=== PATIENT | female | born 1995 | race Caucasian/White ===

== ENCOUNTER → 2018-04-09 14:50 | Outpatient (CLI) | payer SELFPAY ==
[2018-04-09 15:55] LABS: Follicle Stimulating Hormone 3.2 mIU/mL; Luteinizing Hormone 10.7 mIU/mL
== END ==
PROVIDERS: Visit Provider Obstetrics & Gynecology
DX: N92.1 Excessive and frequent menstruation with irregular cycle (principal)
CPT/HCPCS: 36415; 83001; 83002

== ENCOUNTER → 2018-11-13 11:45 | Outpatient (CLI) | payer OTHER, SELFPAY ==
[2018-11-13 15:57] LABS: Progesterone Level 5.25 ng/mL (See Comment)
== END ==
PROVIDERS: Visit Provider Obstetrics & Gynecology
DX: N92.1 Excessive and frequent menstruation with irregular cycle (principal)
CPT/HCPCS: 36415; 84144

== ENCOUNTER → 2019-01-14 | Outpatient (CLI) | payer OTHER, SELFPAY ==
[2019-01-14 16:14] LABS: Progesterone Level 24.14 ng/mL (See Comment)
== END | disposition home or self-care (01) ==
LOC: WOBLAB 13:40
PROVIDERS: Visit Provider Obstetrics & Gynecology
DX: N92.1 Excessive and frequent menstruation with irregular cycle (principal)
CPT/HCPCS: 36415; 84144

== ENCOUNTER → 2020-01-10 | Outpatient (CLI) | payer OTHER, SELFPAY ==
[2020-01-10 18:08] LABS: Progesterone Level 0.25 ng/mL (See Comment)
[2020-01-10 18:13] LABS: hCG Titer Quant., Serum < 1 mIU/mL (1-3)
== END | disposition home or self-care (01) ==
LOC: WOBLAB 16:54
PROVIDERS: Visit Provider Obstetrics & Gynecology
DX: Z30.430 Encounter for insertion of intrauterine contraceptive device (principal)
CPT/HCPCS: 36415; 84144; 84702

== ENCOUNTER → 2020-01-12 16:30 | Outpatient (CLI) | payer OTHER, SELFPAY ==
[2020-01-12 21:27] LABS: Chlamydia Trachomatis by PCR Negative (Negative); Neisserai gonorrhoeae by PCR Negative (Negative); Probe Check PASS; Sample Adequacy Control PASS; Specimen Processing Control PASS
== END ==
PROVIDERS: Visit Provider Obstetrics & Gynecology
DX: Z30.430 Encounter for insertion of intrauterine contraceptive device (principal); Z11.3 Encounter for screening for infections with a predominantly sexual mode of transmission
CPT/HCPCS: 87491; 87591

== ENCOUNTER → 2020-04-03 10:20 | Outpatient (CLI) | payer OTHER, SELFPAY ==
--- NOTE | 2020-04-03 10:25 | STE_ITS ---
Reason For Study: PALPITATIONS Stress Results Protocol: Mohan Protocol Maximum Predicted HR: 198 bpm Target HR: 168 bpm % Maximum Predicted HR: 85 % DurationHeart Rate Stage (mm:ss) (bpm) BP Comment BASELINE 79 120/70 STAGE 1 3:00 126 132/62 STAGE 2 3:00 131 142/62 STAGE 3 3:00 157 140/70 STAGE 4 0:33 169 / INCREASED SOB RECOVERY 105 132/82 Stress Duration: 9:33 mm:ss Maximum Stress HR: 169 bpm Baseline Echocardiogram Findings Stress Echo Wall motion Data Resting WM Intermediate WM Stress WM Interpretation Summary Exercise stress echocardiogram. 24-year-old lady with a history of palpitations. Stress protocol: Resting EKG demonstrates normal sinus rhythm with a rate of 81 bpm normal intervals are noted resting blood pressure is 120/70 mmHg. The patient exercised according to regular Mohan protocol for a total duration of 9 minutes and 33 seconds. The maximum heart rate attained 169 bpm which was 85% of maximum predicted heart rate the maximum workload was 11.9 metabolic equivalents. At rest there were no ST or T wave changes noted to suggest ischemia at peak exercise upsloping ST changes only were noted with no meet the criteria for ischemia. No clinical angina was noted the test was terminated due to target heart rate being achieved. The peak blood pressure was 152/76 with a normal blood pressure response to exercise noted. Stress echocardiogram. Resting echocardiogram demonstrated an ejection fraction of approximately 60%. At peak exercise there was thickening of all leo and reduction in low ventricular cavity size peaking with an ejection fraction of approximately 70%. No wall motion abnormalities were noted. No ischemia was present. Conclusion: Normal exercise stress echo with no arrhythmias noted. Excellent functional aerobic capacity. Preserved ejection fraction. Ordering Physician: Ezequiel Leal Referring Physician: Ezequiel Leal Performed By: Ervin Marroquin RCS
== END ==
PROVIDERS: PCP Internal Medicine; Referring Provider Nurse Practitioner Primary Care; Visit Provider Nurse Practitioner Primary Care
DX: R00.2 Palpitations (principal); R94.31 Abnormal electrocardiogram [ECG] [EKG]
CPT/HCPCS: 93017; 93225; 93226; 93350

== ENCOUNTER 2020-11-26 10:34 | Emergency (ER) | payer OTHER, SELFPAY ==
[2020-11-26 10:34] VITALS: BP 129/89; PULSE 15; RESP 120; TEMP 37.5; O2SAT 100; BMI 29.5
[2020-11-26 10:42] VITALS: O2SAT 98
--- NOTE | 2020-11-26 10:46 | CT_ITS ---
STUDY: CT BRAIN WITHOUT CONTRAST REASON FOR EXAM: Female, 25 years old. headache RADIATION DOSAGE (If Supplied By Facility): CTDIvol = ( ) mGy, DLP = ( ) mGycm TECHNIQUE: Transaxial CT imaging of the brain was performed without administration of intravenous contrast material. Individualized dose optimization techniques were used for this CT. COMPARISON: None. FINDINGS: Normal size ventricles and extra-axial spaces for the patient''s age. Normal white matter tracts of the cerebral hemispheres. There is no intracranial hemorrhage. There are no findings of an acute ischemic infarction. Normal soft tissue structures. Normal visualized paranasal sinuses. CT/Brain/Head without Contrast IMPRESSION: Unremarkable unenhanced CT scan of the brain. Electronically Signed: Sven Vazquez MD at 12:38 EDT Tel , Service support ,
--- NOTE | 2020-11-26 10:59 | ED.DCSUM_ITS ---
- ER Visit Summary Date of Service: 11/26/20 Chief Complaint: Fever History of Present Illness: The patient is a 25 F presenting with fever and chills. Patient states this started yesterday. She states she has been taking Tylenol at home with the last dose 4 hours prior to arrival. She complains of fever and chills. She complains of myalgias and headache. She denies chest pain or shortness of breath. Denies cough. Denies abdominal pain, nausea, vomiting, diarrhea. No recent exposure to Covid. Denies other complaints. Physical Examination: Vitals are stable. Temperature 99.5. Alert no acute distress. HEENT exam is unremarkable. Neck is supple. No meningismus Lungs are clear and equal bilaterally. Heart is regular tachycardic Abdomen is soft nontender nondistended. Extremities are unremarkable. Skin is warm and dry. No focal neurologic deficit. Normal strength Remainder of exam is unremarkable. Emergency Department Course and Treatment: Patient is given IV fluids, Reglan, Benadryl. CBC unremarkable other than platelet 112. Chemistries unremarkable other than potassium 3.0. She was given KCl po. Repeat temperature 101.1, she was given Tylenol. hCG negative. Flu and Covid are negative. Chest xray read by myself and radiology shows no definite acute or significant abnormality seen. CT head shows unremarkable unenhanced CT scan of the brain. On reevaluation, patient is feeling improved. She is comfortable with discharge home. She will follow-up with her primary care physician. Advised return to ED for worsening complaints. Disposition: Discharge home Impression: Febrile illness This note was generated with [employer] mobile dictation software. It may contain incorrect words, spelling, and punctuation that were not noted in review of the chart prior to signing ED Disposition - Plan for ED Patient: Instructions: ED Viral Syndrome (Adult) Referrals: Henrietta Jarrett MD [Primary Care Provider] -
[2020-11-26 11:03] LABS: Absolute Neutrophil Count 5.8 X10^3/uL (2.0-7.7); Basophil# 0.02 X10^3/uL; Basophil% 0.3 % (0-1); Hematocrit 44.4 % (37-47); Hemoglobin 14.9 g/dL (12.0-15.0); Lymphocyte % 10.2 % (19-41); Mean Corp Hgb Conc 33.6 g/dL (32-36); Mean Corpuscular Volume 89.5 fL (81-99); Mean Platelet Vol. 11.2 fl (6.2-12.0); Monocyte# 0.37 X10^3/uL; Monocyte% 5.4 % (0-10); NRBC Flagged by Analyzer 0 % (0-5); Neutrophil # 5.76 X10^3/uL (2.7-7.7); Neutrophil % 83.8 % (47-70); Platelet Count 112 K/mm3 (150-450); RBC Distribution Width CV 13.2 % (11.6-14.6); RBC Distribution Width SD 43.1 fl (35.1-43.9); Red Blood Count 4.96 M/mm3 (4.2-5.4); White Blood Count 6.9 K/mm3 (4.4-11.0)
[2020-11-26] MEDS: Metoclopramide 10 MG/2 ML Vial IV (11:04)
[2020-11-26] MEDS: 0.9% Normal Saline 1,000 ML 1000 ML IV (11:04)
[2020-11-26] MEDS: DiphenhydrAMINE 50 MG/ML Syringe 25 MG IV (11:04)
[2020-11-26 11:15] VITALS: BP 121/75; PULSE 109; RESP 23; TEMP 38.4; O2SAT 100
[2020-11-26 11:19] LABS: Anion Gap 9 (5-15); BUN 9 mg/dL (7-18); BUN/Creat Ratio 10.1 RATIO (10-20); Calcium,Total 8.5 mg/dL (8.5-10.1); Chloride 98 mmol/L (98-107); Creatinine, Serum 0.89 mg/dL (0.55-1.02); EST Glomerular Filtration Rate 83 mL/min (>60); Est Glom Filt Rate - Afr Amer 100 mL/min (>60); Estimated Creatinine Clearance 102.74 ml/min; Glucose 106 mg/dL (74-106); Sodium Level 133 mmol/L (136-145)
[2020-11-26] MEDS: Acetaminophen 500 MG Tablet 1000 MG PO (11:20)
[2020-11-26 11:25] LABS: Internal QC Validated? YES +Cl - CLEAR BKGD; Pregnancy, Serum, hCG Quali. NEGATIVE Negative
--- NOTE | 2020-11-26 11:34 | RAD_ITS ---
STUDY: X-RAY CHEST REASON FOR EXAM: Female, 25 years old. fever, chills, body aches, headache TECHNIQUE: Single AP portable view of the chest. COMPARISON: None. FINDINGS: A right Mediport catheter is seen terminating in the upper right atrium. The lungs are clear and expanded. There is no demonstrated pleural abnormality. Normal size heart. Normal mediastinum and julia. Normal visualized pulmonary arteries. Normal visualized aortic arch and descending thoracic aorta. Normal visualized thoracic spine. Normal visualized ribs, clavicles, and shoulders. There is no demonstrated abnormality of the visualized soft tissue structures of the upper abdomen. RAD/Chest 1 View (Portable) IMPRESSION: No definite acute or significant abnormality seen. Electronically Signed: Jules Monteiro MD at 12:06 EDT , Service support ,
[2020-11-26 11:41] LABS: Color, Urine Yellow (Yellow); Glucose, Dipstick Normal (Normal); Ketone-Dipstick 15 mg/dl (Negative); Leukocyte Esterase-Dipstick 25 /ul (Negative); Nitrite-Dipstick Negative (Negative); Occult Blood-Urine 10 /ul (Negative); Protein-Dipstick 30 mg/dl (Negative); Urine Clarity Sl. Cloudy (Clear); Urine Urobilinogen 4 mg/dl (Normal)
[2020-11-26 11:43] LABS: Urine Bilirubin Dipstick 1 mg/dL (Negative)
[2020-11-26 11:49] LABS: Bacteria 1+ /hpf (None Seen); Mucous, Urine 2+ /hpf (<or=2+); Red Blood Cells-Urine 0-5 SEEN /hpf (0-5); Squamous Epithelial Cells - UA 0-5 SEEN /hpf (5-10); White Blood Cells 0-5 SEEN /hpf (0-5)
[2020-11-26 11:54] VITALS: BP 108/69; PULSE 98; RESP 22; O2SAT 96
[2020-11-26] MEDS: Potassium Chloride Oral Tablet 20 MEQ PO (12:25)
[2020-11-26] MEDS: 0.9% Normal Saline 1,000 ML 999 ML IV (12:25)
[2020-11-26 12:28] VITALS: BP 116/72; PULSE 103; RESP 21; TEMP 37.1; O2SAT 97
--- NOTE | 2020-11-26 12:50 | ED.DEP ---
ED Disposition - Plan for ED Patient: Instructions: ED Viral Syndrome (Adult) Referrals: Henrietta Jarrett MD [Primary Care Provider] -
[2020-11-26 13:01] VITALS: BP 109/95; PULSE 95; RESP 16; O2SAT 98
== END 2020-11-26 13:06 | disposition home or self-care (01) ==
LOC: ED 11:24
PROVIDERS: Emergency Provider Emergency Medicine; PCP Internal Medicine
DX: R50.9 Fever, unspecified (principal); K21.9 Gastro-esophageal reflux disease without esophagitis
CPT/HCPCS: 70450; 71045; 80048; 81001; 84703; 85025; 87426; 87804; 96361; 96374; 96375; 99283; J7030; A4216

== ENCOUNTER → 2021-04-16 | Outpatient (CLI) | payer OTHER, SELFPAY ==
[2021-04-18 18:24] LABS: HPV Reflexed? NOT INDICATED
== END | disposition home or self-care (01) ==
LOC: LABSPEC 12:29
PROVIDERS: PCP Internal Medicine; Referring Provider Nurse Practitioner Women's Health; Visit Provider Nurse Practitioner Women's Health
DX: Z12.4 Encounter for screening for malignant neoplasm of cervix (principal)
CPT/HCPCS: 88175; G0145

== ENCOUNTER → 2021-06-19 12:55 | Outpatient (CLI) | payer OTHER, SELFPAY ==
--- NOTE | 2021-06-19 13:00 | MRI_ITS ---
STUDY: MRI LOWER EXTREMITY RIGHT THIGH REASON FOR EXAM: Right leg weakness, autoimmune necrotizing myopathy. TECHNIQUE: Standardized fat and water weighted pulse sequences were obtained in all 3 orthogonal planes. COMPARISON: None. FINDINGS: Normal subcutis adipose space. Normal visualized quadriceps, adductor and hamstring muscles without intramuscular edema or muscle atrophy. Normal quadriceps extensor mechanism with a normal rectus femoris, vastus medialis, intermedius and lateralis muscles. Normal visualized femur. MRI/Lower Ext/No Jt/w/o IMPRESSION: Unremarkable MRI of the right thigh without demonstrated muscle edema or atrophy. Electronically Signed: Darryn Christianson MD at 9:46 EDT Tel , Service support ,
== END ==
PROVIDERS: PCP Internal Medicine
DX: G72.49 Other inflammatory and immune myopathies, not elsewhere classified (principal); D84.9 Immunodeficiency, unspecified; R53.1 Weakness
CPT/HCPCS: 73718

== ENCOUNTER → 2021-07-02 14:44 | Outpatient (CLI) | payer OTHER, SELFPAY ==
[2021-07-02 16:20] LABS: hCG Titer Quant., Serum 3741 mIU/mL (1-3)
== END ==
PROVIDERS: PCP Internal Medicine; Referring Provider Obstetrics & Gynecology; Visit Provider Obstetrics & Gynecology
DX: O20.0 Threatened abortion (principal)
CPT/HCPCS: 36415; 84702

== ENCOUNTER → 2021-07-05 10:06 | Outpatient (CLI) | payer OTHER, SELFPAY ==
[2021-07-05 12:32] LABS: hCG Titer Quant., Serum 8330 mIU/mL (1-3)
== END ==
PROVIDERS: PCP Internal Medicine; Visit Provider Obstetrics & Gynecology
DX: O20.0 Threatened abortion (principal)
CPT/HCPCS: 36415; 84702

== ENCOUNTER → 2021-07-09 08:27 | Outpatient (CLI) | payer OTHER, SELFPAY ==
--- NOTE | 2021-07-09 09:34 | NEURO ---
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 Evaluate for recurrence of disease. Findings: Nerve conduction studies were performed in the right upper and lower extremities. The right median motor study recording the abductor pollicis brevis showed a normal amplitude, normal distal latency and normal conduction velocity. The right radial sensory response recording over the extensor snuff box showed a normal amplitude, latency and conduction velocity. The right tibial motor study recording the abductor hallucis brevis showed a normal amplitude, normal distal latency and normal conduction velocity. Right sural sensory response showed a normal amplitude and conduction velocity. Needle EMG of the right extremities and paraspinal muscles was performed. Insertional activity was slightly increased in the lumbar paraspinal muscles, but no overt active denervation was present in any of the sampled muscle. No myotonic discharges were present. Motor units in the biceps were borderline small amplitude and short duration. The other muscles demonstrated normal motor unit morphology, activation, and recruitment patterns. Impression: This is an essentially normal study. There is no definitive electrophysiologic evidence of an irritative myopathy. The borderline motor unit changes in the biceps are of unclear significance, but may be the chronic sequelae of her prior muscle disease. Tlaat Blas D.O. Multi Select Codes Neurology Neurology Interp Codes: 92703-25 Musc tst done w/nerv tst bro (interp) (Qty:2) and 55950-50 [facility]
== END ==
PROVIDERS: PCP Internal Medicine
DX: G72.49 Other inflammatory and immune myopathies, not elsewhere classified (principal); D84.9 Immunodeficiency, unspecified; R53.1 Weakness
CPT/HCPCS: 95885; 95908

== ENCOUNTER → 2021-07-26 | Outpatient (CLI) | payer OTHER, SELFPAY ==
[2021-07-26 13:33] LABS: Amphetamine Urine VISTA NEGATIVE (<1000 ng/mL); Barbiturate Urine VISTA NEGATIVE (< 200 ng/mL); Benzodiazepine Urine VISTA NEGATIVE (< 200 ng/mL); Cocaine Urine VISTA NEGATIVE (< 300 ng/mL); Ecstacy Urine VISTA NEGATIVE (< 500 ng/mL); Methadone Urine VISTA NEGATIVE (< 300 ng/mL); PCP Urine VISTA NEGATIVE (< 25 ng/mL); THC Urine VISTA NEGATIVE (< 50 ng/mL); Vista UDS pH Range 6
[2021-07-27 21:07] LABS: Chlamydia By Nucleic Acid AMP Negative (Negative)
[2021-07-27 21:47] LABS: Gonococcus By Nucleic Acid AMP Negative (Negative)
== END | disposition home or self-care (01) ==
LOC: LABSPEC 12:32
PROVIDERS: PCP Internal Medicine; Visit Provider Obstetrics & Gynecology
DX: O09.90 Supervision of high risk pregnancy, unspecified, unspecified trimester (principal); Z3A.00 Weeks of gestation of pregnancy not specified
CPT/HCPCS: 80307; 87086; 87088; 87491; 87591

== ENCOUNTER → 2021-08-23 12:49 | Outpatient (CLI) | payer OTHER, SELFPAY ==
[2021-08-23 13:43] LABS: Absolute Lymphocyte Count 1.96 X10^3/uL (0.83-4.51); Absolute Neutrophil Count 3.6 X10^3/uL (2.0-7.7); Basophil# 0.02 X10^3/uL; Basophil% 0.3 % (0-1); Eosinophil# 0.04 X10^3/uL; Eosinophils% 0.7 % (0-5); Hematocrit 34.6 % (37-47); Hemoglobin 12.2 g/dL (12.0-15.0); Lymphocyte # 1.96 X10^3/ul (0.83-4.51); Mean Corp Hgb Conc 35.3 g/dL (32-36); Mean Corpuscular Hgb 31.3 pg (27.0-32.0); Mean Corpuscular Volume 88.7 fL (81-99); Mean Platelet Vol. 10.8 fl (6.2-12.0); Monocyte# 0.53 X10^3/uL; Monocyte% 8.6 % (0-10); NRBC Flagged by Analyzer 0 % (0-5); Neutrophil # 3.56 X10^3/uL (2.7-7.7); Neutrophil % 58.1 % (47-70); Platelet Count 191 K/mm3 (150-450); RBC Distribution Width CV 12.6 % (11.6-14.6); RBC Distribution Width SD 40.6 fl (35.1-43.9); White Blood Count 6.1 K/mm3 (4.4-11.0)
[2021-08-23 14:37] LABS: NATERA MAILED SPECIMEN
[2021-08-23 15:07] LABS: HIV - WCH Non-Reactive (Nonreactive); Hepatitis B Surface Antigen Non-Reactive (Nonreactive); Hepatitis C Antibody Non-Reactive (Nonreactive); Rubella IgG Reactive (Nonreactive); Syphilis Antibodies Reactive
== END ==
PROVIDERS: PCP Internal Medicine; Referring Provider Obstetrics & Gynecology; Visit Provider Obstetrics & Gynecology
DX: O09.91 Supervision of high risk pregnancy, unspecified, first trimester (principal); Z3A.00 Weeks of gestation of pregnancy not specified
CPT/HCPCS: 36415; 85025; 86703; 86762; 86780; 86803; 86850; 86900; 86901; 87340

== ENCOUNTER 2021-10-16 10:03 | Outpatient (CLI) | payer OTHER, SELFPAY ==
[2021-10-18 16:09] LABS: Dilute Prothrombin Time (dPT) 32.1 sec (0.0-47.6); Dilute Russell Viper Venom 31.4 sec (0.0-47.0); PTT-LA 33.3 sec (0.0-51.9); Thrombin Time 19.2 sec (0.0-23.0)
[2021-10-19 12:41] LABS: Anti-Cardiolipin Ab, IgA, Qn < 9 APL U/mL (0-11); Anti-Cardiolipin Ab, IgG, Qn < 9 GPL U/mL (0-14); Anti-Cardiolipin Ab, IgM, Qn < 9 MPL U/mL (0-12); Beta-2-Glycoprotein I IgA <9 (0-25); Beta-2-Glycoprotein I IgG <9 (0-20); Beta-2-Glycoprotein I IgM <9 (0-32); Interpretation Comment: (.)
== END 2021-10-16 23:59 | disposition home or self-care (01) ==
PROVIDERS: PCP Internal Medicine; Referring Provider Obstetrics & Gynecology; Visit Provider Obstetrics & Gynecology
DX: N96 Recurrent pregnancy loss (principal)
CPT/HCPCS: 36415; 86146; 86147

== ENCOUNTER 2021-11-10 20:41 | Emergency (ER) | payer OTHER, SELFPAY ==
[2021-11-10 20:43] VITALS: BP 126/79; PULSE 124; RESP 15; TEMP 36.3; O2SAT 100; BMI 30.8
--- NOTE | 2021-11-10 21:08 | ED.RN ---
PT. 24 WEEKS GESTATION. DUE IN FEBRUARY.
--- NOTE | 2021-11-10 21:44 | EKG12_ITS ---
Test Reason : FEVER Blood Pressure : / mmHG Vent. Rate : 118 BPM Atrial Rate : 118 BPM P-R Int : 194 ms QRS Dur : 094 ms QT Int : 282 ms P-R-T Axes : 077 032 019 degrees QTc Int : 395 ms Sinus tachycardia Nonspecific ST and T wave abnormality Abnormal ECG Confirmed by PIPER RETANA, KRISHNA ([id number]), senior editor FOREST CHAUDHRY ([id number]) on 11/12/2021 11:40:16 A M Referred By: CY Confirmed By:YUDI SALDAÑA MD
--- NOTE | 2021-11-10 21:46 | EX.ED.DYSGE1 ---
HPI History of Present Illness Chief Complaint: Fever Informant: patient and parent Narrative Narrative: 24 weeks 2-day gestation presents here with parents sudden onset fevers chills myalgias today. No cough. No vomiting or diarrhea. No urinary symptoms. Nonvaccinated for Covid, no flu vaccination this year. States she is high risk due to autoimmune necrotizing myopathy she gets treatment with IVIG every 4 weeks. Also daily steroids. States she is concerned due to having a port infection prior to her . She is at [facility] for 6 days. She states there is 3 bacteria infections in her blood. The port was exchanged at that time. Secondary to this she is here for evaluation. Later evaluation of records through [facility],, patient was at [facility] in November 2020, noted similar presentation of symptoms had a fever of 104 at that time. During work-up she had bacteremia of polymicrobial, positive for actinobacter Junii, Pseudomonas Putida, stenotrophomonas maltophilia, Enterobacter cloacae, suspected CLABSI. At that time concern port was the source was removed December 02, later per patient 1 was placed back in. Same time she had headache suspected idiopathic intracranial hypertension. Eventual confirm diagnosis due to her her acetazolamide was stopped and in June noted a note from neurosurgery that she is admitted for shunt placement. She reports no headaches since then. Prior similar symptoms: Yes PFSH PFSH Medical History Abnormal laboratory test Autoimmune necrotizing myopathy History of infertility, female Home Medications ivig infusions IV .Q 4 WEEKS 04/16/21 [History Last Taken Unknown] multivitamin no.47-iron fum 27 mg-folate no.1 1 mg-dha 300 mg capsule cap PO 07/10/21 [History Last Taken Unknown] prednisone 10 mg tablet 15 mg PO DAILY 08/23/21 [History Last Taken Unknown] methylprednisolone sodium succ [Solu-Medrol] 125 mg IV QMONTH 11/10/21 [History Last Taken Unknown] Allergy/AdvReac Type Severity Reaction Status Date / Time No Known Allergies Allergy Verified 11/10/21 20:43 Family History Other Alcoholism Colon cancer Surgical History History of appendectomy History of biopsy History of breast augmentation Social History household members: spouse, family and children number of children: 1 current occupational status: employed 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 history of recent travel: Yes sexually active: Yes Smoking Status: Former smoker alcohol intake: current alcohol intake frequency: holidays/special occasions only substance use type: does not use what type of physical activity do you participate in: none seatbelt use: always do you feel safe at home: Yes additional social history: - [employer] [facility] ED Constitutional Constitutional ED: Reports chills and fever(s); Denies sweats Eyes Eyes: Denies change in vision ENT ENT ED: Denies dysphagia or sore throat Cardiovascular Cardiovascular: Denies chest pain, leg edema, palpitations or racing heartbeat Respiratory/Chest Respiratory/Chest: Denies cough, dyspnea or dyspnea on exertion Gastrointestinal Gastrointestinal: Denies abdominal pain, diarrhea, nausea or vomiting Genitourinary Genitourinary ED: Denies dysuria, hematuria or urinary frequency Musculoskeletal Musculoskeletal: Reports myalgias; Denies back pain, extremity pain or neck pain Integumentary Denies rash or wounds Neurologic Neurologic: Denies headache(s), paresthesias or weakness EXAM Physical Exam Const Vital Signs: 11/10/21 20:43 11/10/21 21:04 11/10/21 21:52 Temperature 97.4 F L 100.3 F H Temperature Source Temporal Oral Pulse Rate 124 H Respiratory Rate 15 Respiratory Effort Normal Non-Labored Respiratory Pattern Normal Blood Pressure 126/79 H Blood Pressure Mean 94 Pulse Ox 100 Oxygen Delivery Method Room Air 11/10/21 22:12 11/10/21 22:19 11/10/21 23:42 Temperature 100.3 F H Temperature Source Oral Pulse Rate 118 H 126 H Respiratory Rate 17 18 Respiratory Effort Respiratory Pattern Blood Pressure 121/77 H 124/83 H Blood Pressure Mean 91 Pulse Ox 100 100 Oxygen Delivery Method Room Air Positive well nourished and well developed General Appearance ED: well developed and NAD HEENT Reports moist mucous membranes normocephalic and atraumatic Eyes PERRL, EOMs intact bilaterally and conjunctivae normal General Eye ED: Yes normal appearance of both eyes Neck no lymphadenopathy and supple General: Negative for tenderness Chest Wall Chest Narrative: Right upper chest wall port skin no erythema, no drainage. Dry and intact. Chest: Negative for tenderness Resp normal respiratory effort and normal air movement Effort and Inspection: symmetric chest movement; Negative for respiratory distress Cardio regular rate, regular rhythm and no murmurs Rate: tachycardic Peripheral Pulses: pulses 2+ throughout GI normal to inspection, nondistended, normoactive bowel sounds and non-tender Palpation: Negative for guarding or rebound tenderness present Back/Spine no CVA tenderness and no thoracic nor lumbar tenderness Extremity normal to inspection General Extremety ED: Negative for edema or tenderness General Extremity: Negative for edema Neuro oriented x3 and no sensory deficits noted Sensorium / Orientation: awake and alert Skin no rashes or lesions noted and no wounds MDM MDM MDM Narrative Medical decision making narrative: Patient was afebrile on arrival he was tachycardic. Sepsis labs ordered due to her history. Recheck temperature is 100.3. Labs white count 6.1 hemoglobin 10.9. Lactic acid 0.5. Creatinine 0.58. Both Covid and influenza rapid testing returned negative. Discussed the possibility of false negative for both of these with her symptoms. heart tones of 150. Urine negative for infection. She denies cough symptoms. Reevaluation the patient and seen her previous history with bacteremia. 1/4 SIRS criteria currently. Discussed with patient she is concerned for admission however with her and clinical history will likely need transfer to [facility]. She states at this time she would like to go home pending blood cultures return if any worsening symptoms. Do feel with her clinical stability this is reasonable. She declined any Tylenol in the ED. She was eating and drinking in the department. She understands her history discussed if blood cultures were to come back preliminary positive she will be contacted to return and will we discussed the process of likely transfer specially with her current second trimester . Patient understands agrees with plan. Lab Data Attestation: I reviewed the patient's lab results. Labs: Laboratory Results - last 24 hr 11/10/21 11/10/21 11/10/21 22:00 22:00 22:00 WBC 6.1 RBC 3.36 L Hgb 10.9 L Hct 31.3 L MCV 93.2 MCH 32.4 H MCHC 34.8 RDW Std Deviation 48.0 H RDW Coeff of Eric 14.2 Plt Count 116 L MPV 10.7 Immature Gran % (Auto) 0.700 Neut % (Auto) 85.5 H Lymph % (Auto) 8.5 L [place] % (Auto) 5.1 Eos % (Auto) 0.0 Baso % (Auto) 0.2 Absolute Neuts (auto) 5.2 Absolute Lymphs (auto) 0.52 L Nucleated RBC % 0 Differential Comment SCANNED PT 12.6 INR 1.0 APTT 30.4 Sodium 135 L Potassium 3.4 L Chloride 106 Carbon Dioxide 22.0 Anion Gap 7 BUN 7 Creatinine 0.58 Estim Creat Clear Calc 161.74 Est GFR (MDRD) Af Amer 162 Est GFR (MDRD) Non-Af 134 BUN/Creatinine Ratio 12.0 Glucose 85 Lactic Acid Calcium 8.4 L Total Bilirubin 0.30 AST 105 H ALT 104 H Alkaline Phosphatase 90 Total Protein 7.6 Albumin 2.6 L Globulin 5.0 H Albumin/Globulin Ratio 0.5 L Urine Color Urine Clarity Urine pH Ur Specific [place] Urine Protein Urine Glucose (UA) Urine Ketones Urine Occult Blood Urine Nitrite Urine Bilirubin Urine Urobilinogen Ur Leukocyte Esterase Urine RBC Urine WBC Ur Squamous Epith Cells Urine Bacteria Urine Mucus 11/10/21 11/10/21 22:00 22:05 WBC RBC Hgb Hct MCV MCH MCHC RDW Std Deviation RDW Coeff of Eric Plt Count MPV Immature Gran % (Auto) Neut % (Auto) Lymph % (Auto) [place] % (Auto) Eos % (Auto) Baso % (Auto) Absolute Neuts (auto) Absolute Lymphs (auto) Nucleated RBC % Differential Comment PT INR APTT Sodium Potassium Chloride Carbon Dioxide Anion Gap BUN Creatinine Estim Creat Clear Calc Est GFR (MDRD) Af Amer Est GFR (MDRD) Non-Af BUN/Creatinine Ratio Glucose Lactic Acid 0.5 Calcium Total Bilirubin AST ALT Alkaline Phosphatase Total Protein Albumin Globulin Albumin/Globulin Ratio Urine Color Yellow Urine Clarity Clear Urine pH 7.0 Ur Specific [place] 1.010 Urine Protein Negative Urine Glucose (UA) Normal Urine Ketones Negative Urine Occult Blood Negative Urine Nitrite Negative Urine Bilirubin Negative Urine Urobilinogen Normal Ur Leukocyte Esterase Negative Urine RBC 0 SEEN Urine WBC 0 SEEN Ur Squamous Epith Cells 0-5 SEEN Urine Bacteria 0 SEEN Urine Mucus 0 SEEN EKG Initial EKG: Attestation: I personally reviewed and interpreted this EKG as follows: Comments: Sinus rate of 118, no ST or T wave changes. Discharge Plan Triage Chief Complaint: Fever ED Provider: Harman Wallace Dx/Rx/DC Orders Clinical Impression: Fever, Acute viral syndrome, Second trimester Instructions: Preg 2nd Trimester, ED FUO Adult, ED Viral Syndrome (Adult) Prescriptions: No Action ivig infusions IV .Q 4 WEEKS RF: 0 PNV-DHA 27 mg iron-1 mg -300 mg capsule PO RF: 0 prednisone 10 mg tablet 15 mg PO DAILY RF: 0 Solu-Medrol 125 mg/2 mL Recon Soln 125 mg IV QMONTH RF: 0 Primary Care Provider: Henrietta Jarrett Referrals: Henrietta Jarrett MD [Primary Care Provider] - 3-5 Days if not improving Activity Restrictions/Additional Instructions: Covid negative influenza negative labs are stable blood cultures are in the lab. Urine negative for infection. Monitor symptoms. Return if anything worsens. Use Tylenol as needed continue oral hydration. Disposition Disposition: Home, Self Care Discharge Date/Time: 11/10/21 23:44
--- NOTE | 2021-11-10 21:48 | NURSING ---
NO OLD EKGS
[2021-11-10 21:52] VITALS: TEMP 37.9
[2021-11-10 22:12] VITALS: BP 121/77; PULSE 118; RESP 17; O2SAT 100
[2021-11-10 22:12] LABS: Bacteria 0 SEEN /hpf (None Seen); Mucous, Urine 0 SEEN /hpf (<or=2+); Red Blood Cells-Urine 0 SEEN /hpf (0-5); White Blood Cells 0 SEEN /hpf (0-5)
[2021-11-10] MEDS: 0.9% Normal Saline 1,000 ML 999 ML IV (22:12)
[2021-11-10 22:14] LABS: Color, Urine Yellow (Yellow); Glucose, Dipstick Normal (Normal); Ketone-Dipstick Negative (Negative); Leukocyte Esterase-Dipstick Negative /ul (Negative); Nitrite-Dipstick Negative (Negative); Occult Blood-Urine Negative /ul (Negative); Protein-Dipstick Negative (Negative); Urine Bilirubin Dipstick Negative (Negative); Urine Clarity Clear (Clear); Urine Urobilinogen Normal (Normal)
[2021-11-10 22:14] LABS: Absolute Lymphocyte Count 0.52 X10^3/uL (0.83-4.51); Absolute Neutrophil Count 5.2 X10^3/uL (2.0-7.7); Basophil# 0.01 X10^3/uL; Basophil% 0.2 % (0-1); Hematocrit 31.3 % (37-47); Hemoglobin 10.9 g/dL (12.0-15.0); Lymphocyte # 0.52 X10^3/ul (0.83-4.51); Lymphocyte % 8.5 % (19-41); Mean Corp Hgb Conc 34.8 g/dL (32-36); Mean Corpuscular Hgb 32.4 pg (27.0-32.0); Mean Corpuscular Volume 93.2 fL (81-99); Mean Platelet Vol. 10.7 fl (6.2-12.0); Monocyte# 0.31 X10^3/uL; Monocyte% 5.1 % (0-10); NRBC Flagged by Analyzer 0 % (0-5); Neutrophil # 5.23 X10^3/uL (2.7-7.7); Neutrophil % 85.5 % (47-70); POSITIVE DIFFERENTIAL YES; Platelet Count 116 K/mm3 (150-450); RBC Distribution Width CV 14.2 % (11.6-14.6); Red Blood Count 3.36 M/mm3 (4.2-5.4); White Blood Count 6.1 K/mm3 (4.4-11.0)
[2021-11-10 22:18] LABS: Differential Indicated SCAN CRITERIA MET
[2021-11-10 22:19] VITALS: TEMP 37.9
[2021-11-10 22:21] LABS: Squamous Epithelial Cells - UA 0-5 SEEN /hpf (5-10)
[2021-11-10 22:28] LABS: Prothrombin Time (Protime)PT. 12.6 SECONDS (11.7-14.9)
[2021-11-10 22:29] LABS: Partial Thromboplast Time 30.4 Seconds (24.1-36.2)
[2021-11-10 22:36] LABS: Differential Comment SCANNED
[2021-11-10 22:51] LABS: ALB/GLOB Ratio 0.5 RATIO (0.9-2.4); AST(SGOT) 105 U/L (15-37); Alanine Aminotransfer ALT/SGPT 104 U/L (13-56); Albumin, Serum 2.6 g/dL (3.2-5.0); Alkaline Phosphatase 90 U/L (45-117); Anion Gap 7 (5-15); BUN 7 mg/dL (7-18); Calcium,Total 8.4 mg/dL (8.5-10.1); Chloride 106 mmol/L (98-107); Creatinine, Serum 0.58 mg/dL (0.55-1.02); EST Glomerular Filtration Rate 134 mL/min (>60); Est Glom Filt Rate - Afr Amer 162 mL/min (>60); Estimated Creatinine Clearance 161.74 ml/min; Glucose 85 mg/dL (74-106); Potassium 3.4 mmol/L (3.5-5.1); Protein, Total 7.6 g/dL (6.4-8.2); Sodium Level 135 mmol/L (136-145)
[2021-11-10 22:53] LABS: Lactic Acid 0.5 mmol/L (0.4-1.9)
[2021-11-10 23:42] VITALS: BP 124/83; PULSE 126; RESP 18; O2SAT 100
== END 2021-11-10 23:44 | disposition home or self-care (01) ==
PROVIDERS: Emergency Provider Emergency Medicine; PCP Internal Medicine; Visit Provider Emergency Medicine
DX: O98.512 Other viral diseases complicating pregnancy, second trimester (principal); M35.9 Systemic involvement of connective tissue, unspecified; B34.9 Viral infection, unspecified; Z87.891 Personal history of nicotine dependence; Z79.52 Long term (current) use of systemic steroids; Z79.899 Other long term (current) drug therapy; O26.92 Pregnancy related conditions, unspecified, second trimester
CPT/HCPCS: 80053; 81001; 83605; 85025; 85610; 85730; 87040; 87086; 87804; 87811; 93005; 99284; J7030; A4216

== ENCOUNTER 2021-12-11 08:39 | Outpatient (CLI) | payer OTHER, SELFPAY ==
[2021-12-11 08:58] LABS: Absolute Lymphocyte Count 0.84 X10^3/uL (0.83-4.51); Absolute Neutrophil Count 3.1 X10^3/uL (2.0-7.7); Basophil# 0.03 X10^3/uL; Basophil% 0.7 % (0-1); Eosinophil# 0.02 X10^3/uL; Eosinophils% 0.4 % (0-5); Hematocrit 32.8 % (37-47); Hemoglobin 11.3 g/dL (12.0-15.0); Lymphocyte # 0.84 X10^3/ul (0.83-4.51); Lymphocyte % 18.8 % (19-41); Mean Corp Hgb Conc 34.5 g/dL (32-36); Mean Corpuscular Hgb 31.6 pg (27.0-32.0); Mean Corpuscular Volume 91.6 fL (81-99); Monocyte# 0.35 X10^3/uL; Monocyte% 7.8 % (0-10); NRBC Flagged by Analyzer 0 % (0-5); Neutrophil # 3.14 X10^3/uL (2.7-7.7); Neutrophil % 70.5 % (47-70); Platelet Count 181 K/mm3 (150-450); RBC Distribution Width CV 14.5 % (11.6-14.6); RBC Distribution Width SD 48.3 fl (35.1-43.9); Red Blood Count 3.58 M/mm3 (4.2-5.4); White Blood Count 4.5 K/mm3 (4.4-11.0)
[2021-12-11 09:30] LABS: Glucose Challenge Gest 1H 50g 146 mg/dL (70-140)
== END 2021-12-11 23:59 | disposition home or self-care (01) ==
LOC: PAVLAB 08:40
PROVIDERS: PCP Internal Medicine; Referring Provider Obstetrics & Gynecology; Visit Provider Obstetrics & Gynecology
DX: Z34.90 Encounter for supervision of normal pregnancy, unspecified, unspecified trimester (principal); Z3A.24 24 weeks gestation of pregnancy
CPT/HCPCS: 36415; 82950; 85025; 86850; 86900; 86901

== ENCOUNTER 2021-12-14 10:55 | Outpatient (CLI) | payer OTHER, SELFPAY ==
[2021-12-14 11:05] VITALS: BMI 31.4
[2021-12-15 11:23] LABS: Complement C3 206 mg/dL (82-167)
[2021-12-17 16:09] LABS: SJOGREN'S Anti-SS-A test 0.3 AI (0.0-0.9)
[2021-12-17 17:02] LABS: SJOGREN'S Anti-SS-B test < 0.2 AI (0.0-0.9)
== END 2021-12-14 12:29 | disposition home or self-care (01) ==
LOC: WPOUT 11:03 → WP 11:04
PROVIDERS: PCP Internal Medicine; Visit Provider Obstetrics & Gynecology
DX: G93.2 Benign intracranial hypertension (principal); G72.49 Other inflammatory and immune myopathies, not elsewhere classified
CPT/HCPCS: 36415; 59025; 85461; 86160; 86235; 90384; 96372; 99218; G0378; J2790

== ENCOUNTER 2022-02-07 13:11 | Outpatient (CLI) | payer OTHER, SELFPAY | END 2022-02-07 23:59 | disposition home or self-care (01) | LOC: LAB 13:13 | PROVIDERS: PCP Internal Medicine; Visit Provider Nurse Practitioner | DX: Z36.85 Encounter for antenatal screening for Streptococcus B (principal) | CPT/HCPCS: 87081 ==

== ENCOUNTER → 2022-02-14 | Outpatient (CLI) | payer OTHER, SELFPAY ==
[2022-02-14 13:08] LABS: T4 Free Direct 0.98 ng/dL (0.76-1.46); Thyroid Stim Hormone (TSH) 2.02 uIU/mL (0.358-3.74)
== END | disposition home or self-care (01) ==
PROVIDERS: PCP Internal Medicine; Referring Provider Nurse Practitioner; Visit Provider Nurse Practitioner
DX: R00.2 Palpitations (principal)
CPT/HCPCS: 36415; 84439; 84443

== ENCOUNTER 2022-06-25 12:41 | Emergency (ER) | payer OTHER, SELFPAY ==
[2022-06-25 12:42] VITALS: BP 131/95; PULSE 118; RESP 18; TEMP 36.8; O2SAT 98; BMI 26.2
--- NOTE | 2022-06-25 13:18 | ED.VIS.CHEST ---
HPI History of Present Illness Chief Complaint: Chest Pain Informant: patient Onset/Context/Timing Onset: Today Timing: Intermittent Quality: Positive for Sharp Location: Left Parasternal Current Severity: Moderate Maximum Severity: Moderate Narrative Narrative: Patient presents secondary to chest pain. She describes sharp stabbing chest pain along the left sternal border that started this morning when she awoke. Pain is worse with a deep breath. She states she had similar pain to the right upper chest a week or so ago that lasted 5 days and then resolved. She denies personal or family history of blood clots. PFSH PFSH Medical History Abnormal laboratory test Anxiety Autoimmune necrotizing myopathy Cardiology follow-up encounter Depression Former smoker Gastric reflux History of edema History of Holter monitoring History of infertility, female History of irregular heartbeat History of pain when walking History of steroid therapy IIH (idiopathic intracranial hypertension) Leg cramps Migraine headache Normal stress echocardiogram Shortness of breath on exertion Home Medications levonorgestrel 20 mcg/24 hours (8 yrs) 52 mg intrauterine device (Mirena) 1 device intrauterine ONCE 05/02/22 [History Last Taken Unknown] naproxen 500 mg tablet (Naprosyn) 500 mg PO BID PRN pain #20 tabs 06/25/22 [Rx Last Taken Unknown] Allergy/AdvReac Type Severity Reaction Status Date / Time No Known Allergies Allergy Verified 06/25/22 12:43 Family History Other Alcoholism Colon cancer Surgical History History of appendectomy History of biopsy History of brain shunt History of breast augmentation Hx of umbilical hernia repair Social History household members: spouse, family and children number of children: 2 current occupational status: employed 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 history of recent travel: Yes sexually active: Yes Smoking Status: Light Smoker (<10/day) alcohol intake: current alcohol intake frequency: holidays/special occasions only substance use type: does not use what type of physical activity do you participate in: none seatbelt use: always do you feel safe at home: Yes additional social history: - [employer] [facility] ED Constitutional Constitutional ED: Denies chills or fever(s) Eyes Eyes: Denies change in vision or discharge from eye(s) ENT ENT ED: Denies discharge from eye(s), rhinorrhea or sore throat Cardiovascular Cardiovascular: Reports chest pain; Denies palpitations Respiratory/Chest Respiratory/Chest: Reports dyspnea; Denies cough Gastrointestinal Gastrointestinal: Denies abdominal pain, diarrhea, nausea or vomiting Genitourinary Genitourinary ED: Denies dysuria Musculoskeletal Musculoskeletal: Denies back pain or extremity pain Integumentary Denies Abrasions or rash Neurologic Neurologic: Denies headache(s) or weakness Psychiatric Psychiatric: Denies anxiety or depression Allergic/Immunologic Allergic/Immunologic ED: Denies lip swelling or urticaria EXAM Physical Exam Const Vital Signs: 06/25/22 12:42 06/25/22 13:08 06/25/22 14:07 Temperature 98.2 F Temperature Source Temporal Pulse Rate 118 H 107 H Respiratory Rate 18 22 H Respiratory Effort Normal Non-Labored Blood Pressure 131/95 H 130/84 H Blood Pressure Mean 107 99 Pulse Ox 98 100 Oxygen Delivery Method Room Air Room Air 06/25/22 15:14 Temperature Temperature Source Pulse Rate 101 H Respiratory Rate 16 Respiratory Effort Blood Pressure 129/84 H Blood Pressure Mean 99 Pulse Ox 99 Oxygen Delivery Method Room Air Positive well nourished and well developed General Appearance ED: well developed HEENT Reports normocephalic and head/scalp atraumatic Eyes PERRL and EOMs intact bilaterally Neck supple Chest Wall inspection of chest normal and palpation of chest normal Resp normal respiratory effort and clear to auscultation bilaterally Cardio regular rhythm Rate: tachycardic GI normal to inspection, nondistended, normoactive bowel sounds Palpation: soft Back/Spine no CVA tenderness Extremity normal to inspection Neuro oriented x3 and no sensory deficits noted Sensorium / Orientation: alert Motor Exam: strength 5/5 throughout Psych mental status grossly normal Skin no rashes or lesions noted Heart Score History: Slightly/Non-Suspicious ECG: Normal Age: </= 45 years Risk Factors: No Risk Factors Troponin: </= Normal Limit Score: 0 MDM MDM MDM Narrative Medical decision making narrative: Patient was given IV fluids and Toradol. EKG, chest x-ray, lab work obtained. Lab Data Attestation: I reviewed the patient's lab results. Labs: Laboratory Results - last 24 hr 06/25/22 06/25/22 06/25/22 13:45 13:45 13:45 WBC 6.4 RBC 4.08 L Hgb 12.0 Hct 34.5 L MCV 84.6 MCH 29.4 MCHC 34.8 RDW Std Deviation 45.3 H RDW Coeff of Eric 14.8 H Plt Count 163 MPV 10.3 Immature Gran % (Auto) 0.300 Neut % (Auto) 69.1 Lymph % (Auto) 22.6 [place] % (Auto) 7.2 Eos % (Auto) 0.3 Baso % (Auto) 0.5 Absolute Neuts (auto) 4.4 Absolute Lymphs (auto) 1.45 Nucleated RBC % 0 D-Dimer Quant (PE/DVT) 0.57 H* Sodium 137 Potassium 3.7 Chloride 106 Carbon Dioxide 25.0 Anion Gap 6 BUN 9 Creatinine 0.63 Estim Creat Clear Calc 142.66 Est GFR (MDRD) Af Amer 149 Est GFR (MDRD) Non-Af 123 BUN/Creatinine Ratio 14.4 Glucose 91 Calcium 8.7 Troponin I High Sens 20 Serum , Qual 06/25/22 13:45 WBC RBC Hgb Hct MCV MCH MCHC RDW Std Deviation RDW Coeff of Eric Plt Count MPV Immature Gran % (Auto) Neut % (Auto) Lymph % (Auto) [place] % (Auto) Eos % (Auto) Baso % (Auto) Absolute Neuts (auto) Absolute Lymphs (auto) Nucleated RBC % D-Dimer Quant (PE/DVT) Sodium Potassium Chloride Carbon Dioxide Anion Gap BUN Creatinine Estim Creat Clear Calc Est GFR (MDRD) Af Amer Est GFR (MDRD) Non-Af BUN/Creatinine Ratio Glucose Calcium Troponin I High Sens Serum , Qual NEGATIVE Radiography Chest X-Ray - ED: 1 View, Read by ED Physician, Normal, Heart, Lungs and Mediastinum EKG Initial EKG: Attestation: I personally reviewed and interpreted this EKG as follows: Interpretation: Sinus Tachycardia (Sinus tach at 118. No acute ischemia.) Treatment and Re-Evaluation Narrative: CBC and chemistry studies are unremarkable. Troponin is normal at 20. D-dimer slightly elevated at 0.57. Chest x-ray per my interpretation reveals no focal infiltrate. Radiology interpretation is reviewed. Patient sent for CTA of the chest. This reveals multiple bilateral pulmonary nodules. There is borderline mediastinal lymphadenopathy. No evidence of pulmonary embolism. Patient does have autoimmune disorder. This may explain some of her changes noted on the CTA. She will be treated with anti-inflammatories. Return instructions provided. Addendum: Just after I left the room family came out and asked the nurse to check the patient's temperature stating that she was shivering. Her temperature is 100.2. She will be given Tylenol and COVID test will be sent. Results will be texted to the patient. Discharge Plan Triage Chief Complaint: Chest Pain ED Provider: Clara Rangel Dx/Rx/DC Orders Clinical Impression: Acute chest wall pain Instructions: ED Chest Pain, Noncardiac (Child) Prescriptions: New naproxen [Naprosyn] 500 mg tablet 500 mg PO BID PRN (Reason: pain) Qty: 20 0RF No Action Mirena 20 mcg/24 hours (7 yrs) 52 mg intrauterine device 1 device intrauterine ONCE Rx Instructions: as a single dose Primary Care Provider: Henrietta Jarrett Referrals: Henrietta Jarrett MD [Primary Care Provider] - 1-2 Weeks Disposition Disposition: Home, Self Care
[2022-06-25 13:50] LABS: Absolute Lymphocyte Count 1.45 X10^3/uL (0.83-4.51); Absolute Neutrophil Count 4.4 X10^3/uL (2.0-7.7); Basophil# 0.03 X10^3/uL; Basophil% 0.5 % (0-1); Eosinophil# 0.02 X10^3/uL; Eosinophils% 0.3 % (0-5); Hematocrit 34.5 % (37-47); Lymphocyte # 1.45 X10^3/ul (0.83-4.51); Lymphocyte % 22.6 % (19-41); Mean Corp Hgb Conc 34.8 g/dL (32-36); Mean Corpuscular Hgb 29.4 pg (27.0-32.0); Mean Corpuscular Volume 84.6 fL (81-99); Mean Platelet Vol. 10.3 fl (6.2-12.0); Monocyte# 0.46 X10^3/uL; Monocyte% 7.2 % (0-10); NRBC Flagged by Analyzer 0 % (0-5); Neutrophil # 4.44 X10^3/uL (2.7-7.7); Neutrophil % 69.1 % (47-70); Platelet Count 163 K/mm3 (150-450); RBC Distribution Width CV 14.8 % (11.6-14.6); RBC Distribution Width SD 45.3 fl (35.1-43.9); Red Blood Count 4.08 M/mm3 (4.2-5.4); White Blood Count 6.4 K/mm3 (4.4-11.0)
[2022-06-25] MEDS: Ketorolac 30 MG/ML Syringe IV (13:52)
[2022-06-25] MEDS: 0.9% Normal Saline 1,000 ML 150 ML IV (13:53)
--- NOTE | 2022-06-25 13:55 | RAD_ITS ---
STUDY: X-RAY CHEST REASON FOR EXAM: Female, 27 years old. Chest pain TECHNIQUE: Single AP portable view of the chest. COMPARISON: Comparison is made with prior study dated 11/26/2020. FINDINGS: A right-sided alexsandra catheter seen with the tip at the junction of the superior vena cava and right atrium. A left-sided ventriculoperitoneal shunt tube is seen. EKG electrodes are present. The lungs are clear and expanded. There is no demonstrated pleural abnormality. Normal size heart. Normal mediastinum and julia. Normal visualized pulmonary arteries. Normal visualized aortic arch and descending thoracic aorta. Normal visualized thoracic spine. Normal visualized ribs, clavicles, and shoulders. There is no demonstrated abnormality of the visualized soft tissue structures of the upper abdomen. RAD/Chest 1 View (Portable) IMPRESSION: Normal x-ray examination of the chest. Electronically Signed: Cristian Soler MD at 14:14 EDT ,
[2022-06-25 13:57] LABS: Internal QC Validated? YES +Cl - CLEAR BKGD; Pregnancy, Serum, hCG Quali. NEGATIVE Negative
[2022-06-25 14:07] VITALS: BP 130/84; PULSE 107; RESP 22; O2SAT 100
[2022-06-25 14:09] LABS: Anion Gap 6 (5-15); BUN 9 mg/dL (7-18); BUN/Creat Ratio 14.4 RATIO (10-20); Calcium,Total 8.7 mg/dL (8.5-10.1); Chloride 106 mmol/L (98-107); Creatinine, Serum 0.63 mg/dL (0.55-1.02); EST Glomerular Filtration Rate 123 mL/min (>60); Est Glom Filt Rate - Afr Amer 149 mL/min (>60); Estimated Creatinine Clearance 142.66 ml/min; Glucose 91 mg/dL (74-106); Potassium 3.7 mmol/L (3.5-5.1); Sodium Level 137 mmol/L (136-145); Troponin-I HS 20 pg/mL (3.0-54.0)
[2022-06-25 14:14] LABS: D-Dimer Quantitative (DVT/PE) 0.57 FEU/ug/m (0.27-0.49)
--- NOTE | 2022-06-25 14:15 | CT_ITS ---
STUDY: CTA CHEST REASON FOR EXAM: Female, 27 years old. Chest pain, elevated d-dimer RADIATION DOSAGE (If Supplied By Facility): CTDIvol = ( 8.47 ) mGy, DLP = ( 435.66 ) mGycm TECHNIQUE: The examination was performed with the intravenous administration of IV 100mL [id number]-[id number]. Post-processing of the angiographic images was performed, with multiplanar reformation and 3D reconstruction. Individualized dose optimization techniques were used for this CT. COMPARISON: Comparison is made with prior chest radiograph done earlier in the day. FINDINGS: There is evidence of bilateral breast implants. Normal enhancement of the main pulmonary artery and right and left pulmonary arteries. Normal enhancement of the bilateral peripheral pulmonary arteries. There is no demonstrated pulmonary embolism. Normal thoracic aorta and visualized great vessels. There is no demonstrated aortic dissection. Normal heart and pericardium. Borderline enlarged mediastinal lymph nodes. Mildly enlarged bilateral hilar lymph nodes worse on the right side. A portacatheter is seen. Normal visualized trachea and bronchi. The lungs are well expanded. Tiny faint noncalcified nodule is seen in the peripheral lateral aspect of the right upper lobe as seen on axial image #31. This also evidence of a 2 mm nodule in the posterior aspect of the right upper lobe as seen on axial image #206. There is also evidence of a 3.8 mm noncalcified nodule in the posterior aspect of the left upper lobe as seen on axial image #20 and 4. There is also evidence of a irregular nodular density in the anterior aspect of the left upper lobe as seen on axial image #24. This measures 4.8 mm. There is a 8.3 mm pleural-based nodule in the superior segment of the left lower lobe as seen on axial image #143. There is also evidence of a 5.5 mm noncalcified nodule in the lateral aspect of the left lower lobe as seen on axial image #125. Mild degree of bibasilar atelectasis. Scattered nodular densities also seen at the lung bases the largest measures 1.2 cm and is in the posterior medial segment of the left lower lobe. Normal pleura. Normal chest wall structures. Normal osseous structures. Normal visualized upper abdomen. CT/CTA Chest W/WO Contrast IMPRESSION: Multiple bilateral pulmonary nodules as described. Borderline mediastinal lymphadenopathy with evidence of enlarged bilateral hilar lymphadenopathy. No evidence of palm embolism. Electronically Signed: Cristian Soler MD at 15:16 EDT ,
[2022-06-25 15:14] VITALS: BP 129/84; PULSE 101; RESP 16; O2SAT 99
[2022-06-25] MEDS: Acetaminophen 500 MG Tablet 1000 MG PO (15:41)
== END 2022-06-25 15:48 | disposition home or self-care (01) ==
PROVIDERS: Emergency Provider Emergency Medicine; PCP Internal Medicine; Visit Provider Emergency Medicine
DX: R07.89 Other chest pain (principal); R06.00 Dyspnea, unspecified
CPT/HCPCS: 36591; 71045; 71275; 80048; 84484; 84703; 85025; 85379; 87811; 93005; 96361; 96374; 99284; J7030; Q9967; A4216

== ENCOUNTER → 2023-06-04 | Outpatient (CLI) | payer SELFPAY ==
[2023-06-04 12:24] LABS: Thyroid Stim Hormone (TSH) 2.01 uIU/mL (0.358-3.74)
== END | disposition home or self-care (01) ==
PROVIDERS: PCP Internal Medicine; Referring Provider Internal Medicine Cardiovascular Disease; Visit Provider Internal Medicine Cardiovascular Disease
DX: R00.2 Palpitations (principal)
CPT/HCPCS: 36415; 84443

== ENCOUNTER → 2023-07-02 | Outpatient (CLI) | payer MEDICAID, SELFPAY ==
--- NOTE | 2023-07-02 10:43 | ECHOD_ITS ---
Reason For Study: PALPITATIONS Procedure This was a 2D Doppler, Color Flow transthoracic echocardiogram. Exam performed in department. Left Ventricle Normal LV size. Left ventricular systolic function is normal. The estimated ejection fraction is 60 %. Normal diastology for age. No regional wall motion abnormalities noted. Right Ventricle Normal RV size. Normal systolic function. Atria Normal left atrium. Normal right atrium. Mitral Valve Equivocal mitral valve prolapse. Tricuspid Valve Normal tricuspid valve. Trivial tricuspid valve insufficiency. Aortic Valve Trisinus/trileaflet aortic valve. Pulmonic Valve Normal pulmonic valve. Great Vessels Normal aortic root. The pulmonary artery is normal size. Normal inferior vena cava. Pericardium/Pleural No pericardial effusion. MMode/2D Measurements & Calculations LVIDd: 4.2 cm IVSd: 0.81 cm Ao root diam: 2.9 cm LVIDs: 3.1 cm LVPWd: 0.77 cm RVDd: 2.6 cm FS: 26.2 % LAV(MOD-bp): 46.5 ml LVAd ap4: 32.0 cm2 LVAd ap2: 31.9 cm2 LAV(MOD-bp) Indexed: 25.0 ml/m2 LVLd ap4: 9.0 cm LVLd ap2: 9.4 cm LAV(MOD-sp2): 48.5 ml EDV(MOD-sp4): 97.5 ml EDV(MOD-sp2): 90.0 ml LAV(MOD-sp4): 45.9 ml EDV(sp4-el): 97.0 ml EDV(sp2-el): 91.8 ml LVAs ap4: 19.0 cm2 LVAs ap2: 18.6 cm2 LVLs ap4: 7.6 cm LVLs ap2: 7.6 cm ESV(MOD-sp4): 41.5 ml ESV(MOD-sp2): 38.2 ml ESV(sp4-el): 40.5 ml ESV(sp2-el): 38.3 ml EF(MOD-sp4): 57.4 % EF(MOD-sp2): 57.6 % EF(sp4-el): 58.2 % SV(MOD-sp4): 55.9 ml SV(MOD-sp2): 51.8 ml SV(sp4-el): 56.5 ml LA dimension(2D): 2.8 cm LA A4 area: 17.2 cm2 RA A4 area: 10.4 cm2 TAPSE: 1.8 cm Time Measurements MV dec time: 0.18 sec Doppler Measurements & Calculations MV E max sandro: 98.8 cm/sec Lat Peak E' Sandro: 18.4 cm/sec Med Peak E' Sandro: 14.6 cm/sec MV A max sandro: 49.2 cm/sec E/E' lat: 5.4 E/E' med: 6.8 MV E/A: 2.0 MV dec slope: 545.5 cm/sec2 Ao V2 max: 120.4 cm/sec LV V1 max: 98.7 cm/sec Ao max P.8 mmHg LV V1 max P.9 mmHg Ao V2 mean: 88.4 cm/sec LV V1 mean P.2 mmHg Ao mean P.5 mmHg LV V1 mean: 70.4 cm/sec Ao V2 VTI: 28.0 cm LV V1 VTI: 20.4 cm AV (velocity ratio): 0.73 PA V2 max: 86.0 cm/sec TR max sandro: 209.2 cm/sec PA V2 mean: 64.0 cm/sec TR max P.5 mmHg ECHO/Echo Complete Interpretation Summary Normal LV size. Left ventricular systolic function is normal. The estimated ejection fraction is 60 %. Normal diastology for age. Trivial tricuspid valve insufficiency. Ordering Physician: Sukh Raymond Referring Physician: Leena Mcqueen Performed By: Hannah Berrios, RDCS, RVT
== END | disposition home or self-care (01) ==
LOC: CVS 10:42
PROVIDERS: PCP Internal Medicine; Referring Provider Internal Medicine Cardiovascular Disease; Visit Provider Internal Medicine Cardiovascular Disease
DX: R00.2 Palpitations (principal)
CPT/HCPCS: 93306

== ENCOUNTER → 2024-03-17 | Outpatient (CLI) | payer MEDICAID, SELFPAY ==
--- NOTE | 2024-03-17 15:58 | US_ITS ---
INDICATION: pain with IUD EXAMINATION: Ultrasound US Pelvis Non OB Complete With Transvaginal Imaging TECHNIQUE: Transabdominal and transvaginal pelvic ultrasound was performed. Grayscale, spectral waveform, and color flow Doppler evaluation of the adnexa. COMPARISON: No relevant prior comparison study available FINDINGS: UTERUS: Anteverted. The uterus measures 9.2 x 5.3 x 3.6 cm. There is no uterine mass. The endometrial stripe measures 0.4 cm in AP diameter which is within normal limits. IUD identified in typical positioning. RIGHT OVARY: 3.9 x 2.5 x 2.3 cm. Non-enlarged, normal echogenicity. Multiple follicles noted. There is normal arterial inflow and venous outflow present in the right ovary. LEFT OVARY: 2.9 x 2.4 x 2.3 cm. Non-enlarged, normal echogenicity. Multiple follicles noted. There is normal arterial inflow and venous outflow present in the left ovary. FREE FLUID: Moderate amount of free fluid in the cul-de-sac noted. US/Pelvic w/ Transvaginal IMPRESSION: Normal positioning of the IUD. No active ovarian torsion. Multiple ovarian follicles with pelvic free fluid noted. No suspicious mass. Electronically Signed: Negro Paredes MD at 17:11 EDT ,
== END | disposition home or self-care (01) ==
LOC: US 15:55
PROVIDERS: PCP Internal Medicine; Referring Provider Obstetrics & Gynecology; Visit Provider Obstetrics & Gynecology
DX: T83.84XA Pain due to genitourinary prosthetic devices, implants and grafts, initial encounter (principal)
CPT/HCPCS: 76830; 76856

== ENCOUNTER → 2024-05-12 | Outpatient (CLI) | payer MEDICAID, SELFPAY ==
[2024-05-19 09:37] LABS: HPV Reflexed? NOT INDICATED
== END | disposition home or self-care (01) ==
LOC: LABSPEC 14:26
PROVIDERS: PCP Internal Medicine; Visit Provider Nurse Practitioner Family
DX: Z12.4 Encounter for screening for malignant neoplasm of cervix (principal)
CPT/HCPCS: 88175; G0145

== ENCOUNTER → 2024-11-25 | Outpatient (CLI) | payer MEDICAID, SELFPAY ==
[2024-11-25 12:49] LABS: Absolute Lymphocyte Count 1.03 X10^3/uL (0.83-4.51); Absolute Neutrophil Count 1.8 X10^3/uL (2.0-7.7); Basophil# 0.02 X10^3/uL; Basophil% 0.6 % (0-1); Eosinophil# 0.04 X10^3/uL; Eosinophils% 1.2 % (0-5); Hematocrit 40.6 % (37-47); Hemoglobin 13.7 g/dL (12.0-15.0); Lymphocyte # 1.03 X10^3/ul (0.83-4.51); Lymphocyte % 31.2 % (19-41); Mean Corp Hgb Conc 33.7 g/dL (32-36); Mean Corpuscular Hgb 30.5 pg (27.0-32.0); Mean Corpuscular Volume 90.4 fL (81-99); Mean Platelet Vol. 11.9 fl (6.2-12.0); Monocyte# 0.37 X10^3/uL; Monocyte% 11.2 % (0-10); NRBC Flagged by Analyzer 0 % (0-5); Neutrophil # 1.83 X10^3/uL (2.7-7.7); Neutrophil % 55.5 % (47-70); Platelet Count 165 K/mm3 (150-450); RBC Distribution Width CV 13.5 % (11.6-14.6); RBC Distribution Width SD 44.9 fl (35.1-43.9); Red Blood Count 4.49 M/mm3 (4.2-5.4); White Blood Count 3.3 K/mm3 (4.4-11.0)
[2024-11-25 14:34] LABS: ALB/GLOB Ratio 1.1 RATIO (0.9-2.4); AST(SGOT) 127 U/L (<=31); Alanine Aminotransfer ALT/SGPT 149 U/L (<=34); Albumin, Serum 4.4 g/dL (3.5-5.0); Alkaline Phosphatase 231 U/L (35-104); Anion Gap 13 (5-15); BUN 11 mg/dL (4-19); BUN/Creat Ratio 18.7 RATIO (10-20); Calcium,Total 9.3 mg/dL (7.6-11.0); Chloride 105 mmol/L (98-108); Creatinine, Serum 0.59 mg/dL (0.70-1.20); EST Glomerular Filtration Rate 126 (>60); Glucose 77 mg/dL (70-99); Potassium 3.9 mmol/L (3.3-5.1); Protein, Total 8.4 g/dL (5.9-8.4); Sodium Level 138 mmol/L (133-145); Total Bilirubin 0.63 mg/dL (0.00-1.30); Vitamin B12 852 pg/mL (180-914)
== END | disposition home or self-care (01) ==
DX: F32.A Depression, unspecified (principal)
CPT/HCPCS: 36415; 80053; 82306; 82607; 84443; 85025